=== PATIENT | male | born 1970 | race Caucasian/White ===

== ENCOUNTER 2022-07-28 07:35 | Day surgery (SDC) | payer OTHER ==
[~2022-07-28 07:35] MED LIST: Acetaminophen 325 MG Tab PO SCH; Lactated Ringers 1,000 ML IV SCH; Lidocaine 1%/Sod Bicarbonate in NS 8.4% 1 ML Syringe IDERM PRN; Morphine 8 MG, EPINEPHrine 0.3 MG, Cefuroxime 750 MG, Ketorolac 30 MG, Sodium Chloride ... PRN; Pregabalin 25 MG Cap PO SCH; Sodium Chloride 0.9% 10 ML Syringe FLUSH PRN; Sodium Chloride 0.9% 10 ML Syringe FLUSH SCH; Tranexamic Acid 1,000 MG/10 ML Vial ONE; Vancomycin 1 GM SDV ONE; oxyCODONE ER 10 MG TAB.ER PO SCH
[2022-07-28] MEDS ORDERED: Midazolam 1 MG/ML 2 ML SDV ONE (08:14)
[2022-07-28] MEDS ORDERED: Lidocaine 1% 5 ML VIAL ONE (08:14)
[2022-07-28] MEDS ORDERED: fentaNYL 100 MCG/2 ML SDV ONE (08:14)
[2022-07-28] MEDS ORDERED: Propofol 200 MG/20 ML SDV ONE ×3 (08:14→09:43)
[2022-07-28] MEDS ORDERED: ceFAZolin 2 GM Vial ONE (08:16)
[2022-07-28] MEDS ORDERED: Lactated Ringers 1,000 ML ONE ×2 (08:37→09:45)
[2022-07-28] MEDS ORDERED: Ondansetron 4 MG/2 ML SDV ONE (08:37)
[2022-07-28] MEDS ORDERED: Ondansetron 4 MG/2 ML SDV IVPUSH PRN (08:45)
[2022-07-28] MEDS ORDERED: HYDROmorphone 0.5 MG/0.5 ML Syringe IVPUSH PRN (08:45)
[2022-07-28] MEDS ORDERED: fentaNYL 100 MCG/2 ML SDV IVPUSH PRN (08:45)
[2022-07-28] MEDS ORDERED: Ketamine 500 mg/10 ML MDV ONE (08:52)
[2022-07-28] MEDS ORDERED: ePHEDrine 50 MG/ML SDV ONE (08:54)
[2022-07-28] MEDS ORDERED: Phenylephrine HCl In 0.9% NaCl 1 MG/10 ML Vial ONE (09:41)
[2022-07-28] MEDS ORDERED: Cyclobenzaprine 10 MG Tab PO PRN (10:19)
[2022-07-28] MEDS ORDERED: oxyCODONE 5 MG Tab PO PRN (10:19)
[2022-07-28] MEDS ORDERED: Ketorolac 30 MG/ML SDV IVPUSH ONE (11:39)
== END 2022-07-28 14:55 | disposition home or self-care (01) ==
LOC: JD.SDS 07:35
PROVIDERS: ATTEND Orthopaedic Surgery
DX: M16.12 Unilateral primary osteoarthritis, left hip (principal); I10 Essential (primary) hypertension; D72.829 Elevated white blood cell count, unspecified; J45.20 Mild intermittent asthma, uncomplicated; E11.9 Type 2 diabetes mellitus without complications; R63.4 Abnormal weight loss; F17.210 Nicotine dependence, cigarettes, uncomplicated; E78.00 Pure hypercholesterolemia, unspecified; Z88.0 Allergy status to penicillin; Z91.010 Allergy to peanuts; Z98.890 Other specified postprocedural states; Z79.899 Other long term (current) drug therapy; Z79.84 Long term (current) use of oral hypoglycemic drugs; Z68.28 Body mass index [BMI] 28.0-28.9, adult
CPT/HCPCS: 0055T; 27130; 36415; 73501; 82947; 86850; 86900; 86901; 97110; 97116; 97161; A9270; C1713; C1776; J0171; J0690; J0697; J1885; J2250; J2270; J2405; J2704; J3010; J3370; J3490; J7120; 01214

== ENCOUNTER 2023-01-03 11:11 | Emergency (ER) | payer OTHER ==
[2023-01-03 12:04] LABS: BASOPHILS ABSOLUTE AUTO 0.03 K/mm3 (0.01-0.08); BASOPHILS PERCENT AUTO 0.2 % (0.1-1.2); EOSINOPHILS ABSOLUTE AUTO 0.18 K/mm3 (0.04-0.54); EOSINOPHILS PERCENT AUTO 1.2 (0.8-7.0); HEMATOCRIT 47.7 % (40.1-51.0); HEMOGLOBIN 16.5 gm/dl (13.7-17.5); IMMATURE GRAN ABSOLUTE AUTO 0.04 K/mm3 (0.00-0.10); IMMATURE GRAN PERCENT AUTO 0.3 % (<=1.0); LYMPHOCYTES ABSOLUTE AUTO 2.72 K/mm3 (1.32-3.57); LYMPHOCYTES PERCENT AUTO 18.9 % (21.8-53.1); MEAN CORPUSCULAR HEMOGLOBIN 31.3 pg (25.7-32.2); MEAN CORPUSCULAR HGB CONC 34.6 g/dl (32.2-35.5); MEAN PLATELET VOLUME 9.2 fl (9.4-12.3); MONOCYTES ABSOLUTE AUTO 0.92 K/mm3 (0.30-0.82); MONOCYTES PERCENT AUTO 6.4 % (5.3-12.2); NEUTROPHILS ABSOLUTE AUTO 10.53 K/mm3 (1.78-5.38); PLATELET COUNT,PLT 281 K/mm3 (163-337); RED BLOOD CELL COUNT 5.28 M/mm3 (4.63-6.08); WHITE BLOOD CELL COUNT,WBC 14.42 K/mm3 (4.23-9.07)
[2023-01-03 12:12] LABS: MEAN CORPUSCULAR VOLUME 90.3 fl (79.0-92.2)
[2023-01-03 12:28] LABS: ALBUMIN 3.9 g/dl (3.4-5.0); ANION GAP 11.7 (5-15); BILIRUBIN TOTAL 0.5 mg/dL (0.2-1.0); BUN/CREATININE RATIO 10.8 (14-18); CALCIUM 8.8 mg/dL (8.5-10.1); CREATININE 1.2 mg/dL (0.7-1.3); EST CRCL DRUG DOSING (CG) 74.35 mL/min; MAGNESIUM 2.1 mg/dL (1.8-2.4); POTASSIUM,K 3.7 mEq/L (3.5-5.1)
[2023-01-03] MEDS ORDERED: atorvaSTATin 40 MG Tab PO ONE (12:43)
[2023-01-03] MEDS ORDERED: Aspirin 81 MG Tab.Chew PO ONE (12:43)
[2023-01-03 12:45] LABS: INR 0.97; PROTHROMBIN TIME 10.4 SECONDS (9.7-12.0)
[2023-01-03] MEDS ORDERED: Heparin Sodium 5,000 Units/ML Vial IVPUSH ONE (12:45)
[2023-01-03] MEDS ORDERED: Heparin Sodium/D5W 25,000 UNITS/500 ML BAG IV SCH (12:45)
[2023-01-03] MEDS ORDERED: Sodium Chloride 0.9% 10 ML Syringe FLUSH ONE (13:10)
[2023-01-03] MEDS ORDERED: Iopamidol 755 MG/ML 50 ML Bottle IVPUSH ONE (13:10)
[2023-01-03] MEDS ORDERED: Iopamidol 755 Mg/ML 100 ML Bottle IVPUSH ONE (13:10)
[2023-01-03] MEDS ORDERED: Sodium Chloride 0.9% 100 ML IV SCH (13:15)
== END 2023-01-03 15:24 ==
LOC: JD.ED 11:11
DX: I21.4 Non-ST elevation (NSTEMI) myocardial infarction (principal); I10 Essential (primary) hypertension; J45.909 Unspecified asthma, uncomplicated; E11.9 Type 2 diabetes mellitus without complications; E66.9 Obesity, unspecified; F17.210 Nicotine dependence, cigarettes, uncomplicated; Z68.29 Body mass index [BMI] 29.0-29.9, adult; Z91.048 Other nonmedicinal substance allergy status; Z91.018 Allergy to other foods; Z88.0 Allergy status to penicillin; Z79.899 Other long term (current) drug therapy
CPT/HCPCS: 36415; 71045; 71260; 74177; 80053; 83735; 84484; 85025; 85610; 85730; 93005; 96365; 96366; 99285; A9270; J1644; J3490; Q9967; 93010

== ENCOUNTER 2023-02-28 09:19 | Emergency (ER) | payer OTHER ==
[2023-02-28] MEDS ORDERED: Sodium Chloride 0.9% 10 ML Syringe FLUSH PRN (10:24)
[2023-02-28] MEDS ORDERED: Aspirin 81 MG Tab.Chew PO ONE (10:24)
[2023-02-28 10:49] LABS: BASOPHILS ABSOLUTE AUTO 0.1 K/mm3 (0.0-0.2); BASOPHILS PERCENT AUTO 0.4 % (0.0-1.0); EOSINOPHILS ABSOLUTE AUTO 0.1 K/mm3 (0.0-0.4); HEMATOCRIT 46.1 % (42.0-52.0); IMMATURE GRAN ABSOLUTE AUTO 0.07 K/mm3 (0.00-0.05); IMMATURE GRAN PERCENT AUTO 0.5 % (0.0-0.4); LYMPHOCYTES ABSOLUTE AUTO 2.5 K/mm3 (1.0-4.8); LYMPHOCYTES PERCENT AUTO 19.5 % (24.0-44.0); MEAN CORPUSCULAR HEMOGLOBIN 32.4 pg (28.0-32.0); MEAN CORPUSCULAR HGB CONC 34.7 g/dl (32.0-36.0); MEAN CORPUSCULAR VOLUME 93.3 fl (83.0-99.0); MEAN PLATELET VOLUME 8.8 fl (9.4-12.4); MONOCYTES ABSOLUTE AUTO 0.6 K/mm3 (0.0-0.8); MONOCYTES PERCENT AUTO 4.8 % (0.0-8.0); NEUTROPHILS ABSOLUTE AUTO 9.5 K/mm3 (1.8-7.7); NEUTROPHILS PERCENT AUTO 73.8 % (41.0-71.0); PLATELET COUNT,PLT 261 K/mm3 (150-400); RED BLOOD CELL COUNT 4.94 M/mm3 (4.52-5.90); WHITE BLOOD CELL COUNT,WBC 12.85 K/mm3 (3.9-11.3)
[2023-02-28 11:02] LABS: D-DIMER QUANTITATIVE 0.31 mg/L (0.19-0.50); PROTHROMBIN TIME 10.7 SECONDS (9.7-12.0)
[2023-02-28 11:11] LABS: ALBUMIN 3.8 g/dl (3.4-5.0); ANION GAP 12.3 (5-15); BILIRUBIN TOTAL 0.5 mg/dL (0.2-1.0); BUN/CREATININE RATIO 10.8 (14-18); CREATININE 1.2 mg/dL (0.7-1.3); EST CRCL DRUG DOSING (CG) 74.35 mL/min; MAGNESIUM 2.1 mg/dL (1.8-2.4); POTASSIUM,K 4.3 mEq/L (3.5-5.1); PROTEIN TOTAL,TP 7.7 g/dl (6.4-8.2)
[2023-02-28] MEDS ORDERED: Metoclopramide 10 MG/2 ML SDV IVPUSH ONE (11:42)
[2023-02-28] MEDS ORDERED: Sodium Chloride 0.9% 1,000 ML IV ONE (11:42)
== END 2023-02-28 13:38 | disposition home or self-care (01) ==
LOC: JD.ED 09:19
DX: R42 Dizziness and giddiness (principal); E78.00 Pure hypercholesterolemia, unspecified; I10 Essential (primary) hypertension; I25.2 Old myocardial infarction; E11.9 Type 2 diabetes mellitus without complications; E66.9 Obesity, unspecified; F17.210 Nicotine dependence, cigarettes, uncomplicated; Z91.09 Other allergy status, other than to drugs and biological substances; Z91.018 Allergy to other foods; Z88.0 Allergy status to penicillin; Z79.51 Long term (current) use of inhaled steroids; Z79.899 Other long term (current) drug therapy; Z86.16 Personal history of COVID-19; Z20.822 Contact with and (suspected) exposure to COVID-19; Z68.29 Body mass index [BMI] 29.0-29.9, adult
CPT/HCPCS: 36415; 71045; 80053; 83735; 84484; 85025; 85379; 85610; 86140; 87635; 93005; 96361; 96374; 99284; A9270; J2765; J3490; J7030; 93010; U0002